=== PATIENT | female | born 1960 | race Caucasian/White ===

== ENCOUNTER 2021-02-15 22:14 | Emergency (ER) | payer MEDICARE, OTHER ==
[~2021-02-15 22:14] MED LIST: ANASTROZOLE1 MG PO; ASCORBIC ACID500 MG PO; ATENOLOL25 MG PO; CYMBALTA 30MG C30 MG PO; EMERGEN-C 500500 MG PO; LOVAZA1 GM PO; MAG-OXIDE 400M400 MG PO; PRINIVIL20 MG PO; PROLIA60 MG/1 ML SC; TRAMADOL HCL50 MG PO; VITAMIN D31000 UNIT PO; VOLTAREN **OUT75 MG PO
[2021-02-15 23:25] LABS: BASOPHIL 0.3 % (0-2); EOSINOPHIL 0.2 % (0-5); HCT 40.3 % (37.0-47.0); HGB 13.1 g/dl (12.5-16.0); LYMPHOCYTE 8.5 % (15-48); MCH 30.1 pg (25.0-31.0); MCHC 32.5 g/dL (32.0-36.0); MCV 92.6 fL (78.0-100.0); MONOCYTE 6.9 % (0-12); NEUTROPHIL 83.1 % (41-80); NRBC 0; PLT 275 K/uL (150-400); RBC 4.35 M/uL (4.20-5.40); RDW 13.2 % (11.5-14.0); WBC 12.8 K/uL (4.0-10.5)
[2021-02-15 23:38] LABS: ALBUMIN 3.5 g/dL (3.4-5.0); BILIRUBIN - TOTAL 0.7 mg/dL (0.2-1.0); BUN/CREAT RATIO (CALC) 24.4 RATIO; CREATININE 0.82 mg/dL (0.51-0.95); GLOBULIN (CALCULATION) 4.5 g/dL; POTASSIUM 4.5 mmol/L (3.5-5.1)
[2021-02-15 23:43] LABS: LACTIC ACID 2.3 mmol/L (0.4-1.9)
[2021-02-16 00:31] LABS: CORONAVIRUS 2019 SARS-COV-2 NEGATIVE (NEGATIVE); INFLUENZA A NAA NEGATIVE (NEGATIVE)
[2021-02-16 01:02] LABS: BILIRUBIN NEGATIVE (NEGATIVE); BLOOD NEGATIVE Ery/uL (NEGATIVE); CLARITY CLEAR (CLEAR); COLOR ORANGE (YELLOW); GLUCOSE (U) 3+ mg/dL (NORMAL); LEUKOCYTES TRACE Leu/uL (NEGATIVE); NITRITE POSITIVE (NEGATIVE); PROTEIN 1+ mg/dL (NEGATIVE); SPECIFIC GRAVITY 1.015 (1.001-1.030)
[2021-02-16 01:08] LABS: BACTERIA 2+; URINARY WBC 20-50
[2021-02-16] MEDS ORDERED: IBUPROFEN800 MG PO (04:13)
[2021-02-16] MEDS ORDERED: ONDANSETRON ODT4 MG SL (04:13)
[2021-02-16] MEDS ORDERED: CIPRO500 MG PO (04:13)
[2021-02-16] MEDS ORDERED: PERCOCET 5-3251 EACH PO (04:13)
== END 2021-02-16 04:05 | disposition home or self-care (01) ==
LOC: FER 22:14
PROVIDERS: Emergency Medicine Emergency Medical Services
DX: N10 Acute pyelonephritis (principal); K43.9 Ventral hernia without obstruction or gangrene; I12.9 Hypertensive chronic kidney disease with stage 1 through stage 4 chronic kidney disease, or unspecified chronic kidney disease; N18.9 Chronic kidney disease, unspecified; Z90.49 Acquired absence of other specified parts of digestive tract; Z98.890 Other specified postprocedural states; Z88.2 Allergy status to sulfonamides; Z88.5 Allergy status to narcotic agent; Z20.822 Contact with and (suspected) exposure to COVID-19
CPT/HCPCS: 36415; 71045; 80053; 81001; 83605; 84145; 84484; 85025; 87040; 87088; 93005; J0696; J1170; J1885; J2405; J7030; U0002

== ENCOUNTER 2022-01-11 09:27 | Emergency (ER) | payer MEDICARE ==
[~2022-01-11 09:27] MED LIST changes: +CIPRO500 MG PO; +IBUPROFEN800 MG PO; +ONDANSETRON ODT4 MG SL; +PERCOCET 5-3251 EACH PO
[2022-01-11 10:18] LABS: BASOPHIL 0.3 % (0-2); EOSINOPHIL 0.1 % (0-5); HCT 37.2 % (37.0-47.0); MCH 29.8 pg (25.0-31.0); MCHC 32.3 g/dL (32.0-36.0); MCV 92.3 fL (78.0-100.0); MONOCYTE 2.4 % (0-12); MPV 10.2 fL (6.0-9.5); NEUTROPHIL 93.6 % (41-80); NRBC 0; PLT 219 K/uL (150-400); RBC 4.03 M/uL (4.20-5.40); RDW 12.7 % (11.5-14.0); WBC 9.8 K/uL (4.0-10.5)
[2022-01-11 10:29] LABS: BILIRUBIN NEGATIVE (NEGATIVE); BLOOD NEGATIVE Ery/uL (NEGATIVE); CLARITY CLEAR (CLEAR); COLOR YELLOW (YELLOW); GLUCOSE (U) NORMAL (NORMAL); LEUKOCYTES NEGATIVE Leu/uL (NEGATIVE); NITRITE NEGATIVE (NEGATIVE); PROTEIN TRACE (LOW) mg/dL (NEGATIVE)
[2022-01-11 10:42] LABS: CORONAVIRUS 2019 SARS-COV-2 NEGATIVE (NEGATIVE); INFLUENZA A NAA NEGATIVE (NEGATIVE)
[2022-01-11 10:46] LABS: ALBUMIN 3.4 g/dL (3.4-5.0); BILIRUBIN - TOTAL 0.7 mg/dL (0.2-1.0); BUN/CREAT RATIO (CALC) 28.4 RATIO; CREATININE 0.95 mg/dL (0.51-0.95); GLOBULIN (CALCULATION) 3.8 g/dL; POTASSIUM 3.9 mmol/L (3.5-5.1); TOTAL PROTEIN 7.2 g/dL (6.4-8.2)
[2022-01-11 10:58] LABS: LACTIC ACID 1.4 mmol/L (0.4-1.9)
[2022-01-11] MEDS ORDERED: PERCOCET 5-3251 EACH PO (12:45)
== END 2022-01-11 13:00 | disposition home or self-care (01) ==
LOC: FER 09:27
PROVIDERS: Emergency Medicine
DX: R06.02 Shortness of breath (principal); R50.9 Fever, unspecified; R11.2 Nausea with vomiting, unspecified; T50.995A Adverse effect of other drugs, medicaments and biological substances, initial encounter; I10 Essential (primary) hypertension; Z88.2 Allergy status to sulfonamides; Z88.5 Allergy status to narcotic agent; Z88.8 Allergy status to other drugs, medicaments and biological substances; Z20.822 Contact with and (suspected) exposure to COVID-19
CPT/HCPCS: 36415; 36600; 71045; 80053; 81003; 82803; 83605; 84145; 85025; 87040; 87088; 93005; J1170; J1885; J2405; J7030; U0002

== ENCOUNTER 2022-02-18 17:40 | Emergency (ER) | payer MEDICARE, OTHER ==
[~2022-02-18 17:40] MED LIST changes: +OXYCODON-ACETA1 EAC1 PO
== END 2022-02-18 20:25 | disposition home or self-care (01) ==
LOC: FER 17:40
DX: S40.022A Contusion of left upper arm, initial encounter (principal); E11.9 Type 2 diabetes mellitus without complications; I10 Essential (primary) hypertension; Z88.2 Allergy status to sulfonamides; Z88.8 Allergy status to other drugs, medicaments and biological substances; Z88.5 Allergy status to narcotic agent; Z79.899 Other long term (current) drug therapy
CPT/HCPCS: 93971